=== PATIENT | female | born 1940 | race Two or more races ===

== ENCOUNTER → 2022-06-03 | Day surgery (SDC) | payer OTHER ==
[~2022-06-03] VITALS: Ht 160 cm; Wt 65.8 kg
[~2022-06-03] MED LIST: GLIPIZIDE5 MG PO; GLUMETZA1000 MG PO; JANUVIA100 MG PO; METFORMIN HCL500 MG PO; OMEPRAZOLE40 MG PO
== END | disposition home or self-care (01) ==
LOC: ADM 05-29 07:00 → CIR.AMB 07:00
PROVIDERS: ATTEND Orthopaedic Surgery Hand Surgery
DX: M18.11 Unilateral primary osteoarthritis of first carpometacarpal joint, right hand (principal); M65.331 Trigger finger, right middle finger; Z20.822 Contact with and (suspected) exposure to COVID-19; Z88.0 Allergy status to penicillin; I10 Essential (primary) hypertension; E11.9 Type 2 diabetes mellitus without complications